=== PATIENT | female | born 2000 | race Caucasian/White ===

== ENCOUNTER 2024-10-19 19:24 | Emergency (ER) | payer OTHER, SELFPAY ==
[2024-10-19 19:26] VITALS: BP 130/91
--- NOTE | 2024-10-19 20:15 | ED.GENMED ---
History of Present Illness
General
Chief Complaint: Abdominal Symptoms
Source: patient
Exam Limitations: none
Time Seen by Provider: 10/19/24 19:57
History of Present Illness
History of Present Illness:
24-year-old female otherwise healthy presents complaining of lower abdominal and back pain that radiates down the legs. No bowel or bladder dysfunction. The pain in her abdomen is severe almost feels like menstrual cramps however she is on the
Depo shot and does not receive her menstrual cycle. She denies urinary retention or incontinence. She denies fevers. She believes she has been eating and drinking well. She is very active. No prior abdominal surgical history. No known injury
otherwise
Phy Exam
Physical Exam
Physical Exam:
General: Well-appearing female no acute respiratory distress
HEENT normocephalic atraumatic
Heart: Regular rate and rhythm lungs: Clear no wheeze
Abdomen soft tender to lower abdomen mild guarding no rebound tenderness
Extremities: No cyanosis
Course
Orders/Labs/Results
Orders:
Orders
10/19/24 20:10
0.9% Sodium Chloride 1000 ml [Nss] 1,000 ml IV BOLUS
Ketorolac [Toradol] 15 mg IV NOW STA
Test Result ONCE
US Pelvis W Transvag Combined Urgent
Comment:
Reason For Exam: pelvic pain
10/19/24 20:51
CPK [Creatine Phosphokinase] Urgent
Complete Blood Count/With Diff Urgent
Comprehensive Metabolic Panel Urgent
HCG, Serum Qualitative Screen Urgent
10/19/24 23:11
CT Abd/pelvis W Iv Cont Urgent
Comment:
Reason For Exam: lower abdominal pain
10/20/24 00:35
Urinalysis Reflex To Culture Urgent
Date Specimen was Collected: 10/20/24
Time Specimen was Collected: 00:40
Abnormal Lab Results
10/19/24
20:51
RBC 4.02 L 10^6/uL
(4.20-5.40)
Hct 35.3 L %
(37.0-47.0)
RDW 11.3 L %
(11.5-14.5)
Absolute Lymphs (auto) 1.0 L 10^3/uL
(1.2-3.4)
Lymphocytes % 17.6 L %
(20.5-51.1)
10/19/24 20:51
10/19/24 20:51
Vital Signs
Initial and Last Documented VS:
Initial Vital Signs
Temp Pulse Resp BP Pulse Ox
98.3 F 95 16 130/91 100
10/19/24 19:26 10/19/24 19:26 10/19/24 19:26 10/19/24 19:26 10/19/24 19:26
Last Documented Vital Signs
Temp Pulse Resp BP Pulse Ox
99.0 F 82 20 101/71 99
10/19/24 22:53 10/20/24 00:30 10/20/24 00:30 10/20/24 00:30 10/20/24 00:30
MDM/Problems Addressed
Differential Diagnosis Includes:
Patient with lower abdominal and back pain. Consider ovarian cyst versus torsion versus UTI versus pyelonephritis versus radiculopathy
She had a syncopal episode today that she describes as related to the pain. Question possible vasovagal episode. Will check EKG and placed on electronic device monitor
Fluids and Toradol ordered. Ultrasound pelvis ordered
*Pulse Oximetry
SaO2: 100
Oxygen Mode of Delivery: Room air
Patient hypoxic: no
*Critical Care Note
Total Time (30-74mins, 75-104mins- exclusive of procedures): Not Applicable
Update Note
Update Note:
Ultrasound negative for acute finding. CT was then ordered which was also negative for acute finding. Patient notes some relief after Toradol. Etiology of patient's abdominal pain somewhat unclear but with negative workup we will trial discharge
home with Motrin and Tylenol and return precautions were given
ED Attending Note
-
Portions of this chart may have been created with voice recognition software.� Occasional wrong word or��sound alike� substitutions may have occurred due to the inherent limitations of voice recognition software.
Discharge Plan
Departure
Patient Disposition: Home (Routine Discharge)
Date of Disposition: 10/20/24
Time of Disposition: 00:51
Patient with high blood pressure during this ER visit?: No
Discharge Problem:
Abdominal pain
Instructions: Abdominal Pain
Prescriptions:
No Action
Depo-Provera
1 unit IM Q90D
Referrals:
Tamera Gamez CRNP [Family Provider, General]
Stand Alone Forms: Return to Work
Activity Restrictions/Additional Instructions:
Use Tylenol or ibuprofen for pain. Return here if worse otherwise follow-up with your doctor
Interventions
Interventions:
*Risk Screen - Suicide Last Done: 10/19/24 19:26
*General Assessment Last Done: 10/19/24 19:26
*Neglect/Abuse Screening Last Done: 10/19/24 19:26
*ED- Fall Risk Assessment Last Done: 10/19/24 21:44
*ED COVID-19 Vaccine History Last Done: 10/19/24 21:44
SC-Fqihno-Fccdbsrfpf Assessment Last Done: 10/19/24 22:53
Discharge Date and Time
Print Language: ARGENTINE
[2024-10-19 21:09] LABS: Hematocrit 35.3 % (37.0-47.0); Hemoglobin 12.4 g/dL (12.0-16.0); Mean Corp Hgb Conc. 35.1 g/dL (33.0-37.0); Mean Corpuscular Volume 87.8 fL (81.0-99.0); Nucleated Red Blood Cells % 0 %; Platelet Count 192 10^3/uL (130-400); Red Cell Dist. Width 11.3 % (11.5-14.5)
[2024-10-19 21:20] LABS: HCG, Serum Qualitative Screen Negative
[2024-10-19 21:30] LABS: ALT (SGPT) 10 U/L (0-35); AST (SGOT) 18 U/L (14-36); Albumin 4.9 g/dl (3.5-5.0); Alkaline Phosphatase 58 U/L (38-126); Blood Urea Nitrogen 8 mg/dl (7-17); Calcium 10.1 mg/dl (8.4-10.2); Carbon Dioxide 24 mmol/L (22-30); Chloride 105 mmol/L (98-107); Glucose 95 mg/dl (70-99); Potassium 4.3 mmol/L (3.5-5.1); Sodium 140 mmol/L (135-145); Total Protein 7.8 g/dl (6.3-8.2); eGFR > 60.00
[2024-10-19] MEDS: TORADOL 15 MG IV (21:30)
[2024-10-19] MEDS: NSS 1000 IV (21:31)
[2024-10-19 21:34] VITALS: BMI 25.5
[2024-10-19 21:39] VITALS: BP 122/83
[2024-10-19 22:00] VITALS: BP 116/78
[2024-10-19 22:53] VITALS: BP 121/77
[2024-10-20 00:30] VITALS: BP 101/71
[2024-10-20 01:00] LABS: Urine Character Clear (Clear)
[2024-10-20 01:23] LABS: Urine Red Blood Cell 0-2 /HPF (0-2); Urine White Cell None Seen /HPF (0-5)
== END 2024-10-20 01:11 | disposition home or self-care (01) ==
LOC: EMR 19:24
PROVIDERS: Physician Assistant; EMERGENCY PHYSICIAN Student in an Organized Health Care Education/Training Program; FAMILY PHYSICIAN Nurse Practitioner Adult Health
DX: R55 Syncope and collapse (principal); R10.30 Lower abdominal pain, unspecified; M54.9 Dorsalgia, unspecified; R10.2 Pelvic and perineal pain
CPT/HCPCS: 99285; 96361; 96374; 74177; 76830; 76856; 80053; 81003; 81015; 82550; 84703; 85025; Q9967

== ENCOUNTER 2024-10-22 11:29 | Inpatient (IN) | payer OTHER, SELFPAY ==
[2024-10-22] VITALS (9 sets, daily range): BP systolic 100–130; BP diastolic 55–84; BMI 26.5; BMI 25.6
--- NOTE | 2024-10-22 08:06 | ED.GENMED ---
History of Present Illness
General
Chief Complaint: Headache
Source: patient, records and family
Exam Limitations: none
Time Seen by Provider: 10/22/24 07:53
Nursing documentation reviewed up to this point in time: agreed with
History of Present Illness
History of Present Illness:
24-year-old female with no reported chronic medical issues presents to the emergency room accompanied by her parents for evaluation of headache and lightheadedness. The patient was notably seen in this emergency room 3 days ago for abdominal
britany says that she started with lower abdominal cramping radiating to her back, was seen in the emergency room and had pelvic ultrasound as well as abdominal CT which were both negative for any acute abnormalities. She was discharged home and
said her symptoms were gone the next day and she had some spotting the next day and so she thinks her symptoms may have been from breakthrough menstrual symptoms (she is on Depo and has irregular periods). She says that yesterday evening she
started with headache and symptoms have been constant and significant since then. She reports a diffuse pressure sensation. No clear triggering relieving factors noted. She says that last night she was having some nausea and vomiting. She denies
any neck pain or stiffness. She denies fever or chills. She denies any eye pain, change in her vision or speech, focal weakness or numbness. She denies similar symptoms in the past. She does make note that overnight while she was vomiting she
had an episode of lightheadedness but did not pass out; she did have syncopal episode associated with her abdominal discomfort earlier this week felt likely to be vasovagal. She says that when she passed out she had a minor right frontal head
strike.
Review of Systems
Review of Systems
All Other Systems: ROS reviewed and negative except as documented in HPI and ROS
Constitutional: Reports fatigue; Denies fever
EENT: Denies sore throat or runny nose
Respiratory: Denies cough or trouble breathing
Cardiac: Denies chest pain, diaphoresis or palpitations
ABD/GI: Reports nausea and vomiting; Denies abdominal pain, diarrhea or constipated
: Denies flank pain
Musculoskeletal: Denies neck pain or back pain
Neurological: Reports dizzy (Lightheaded) and headache; Denies weakness or numbness
Phy Exam
Physical Exam
Physical Exam:
General: Resting in bed with her eyes closed but awakes easily, alert and answers questions appropriately; not toxic appearing
Head: Normocephalic, atraumatic
Eyes: Conjunctiva normal, EOMI, pupils equal round reactive to light bilaterally
Throat: Airway intact, handling secretions
Neck: Trachea midline, supple without meningismus, no cervical spine tenderness
Lungs: Clear to auscultation bilaterally, no wheezing, rales, rhonchi
Heart: Regular rate and rhythm, no murmurs, gallops, or rubs
Abd: Soft, non distended, nontender to deep palpation
Neuro: Cranial nerves intact, speech fluid without dysarthria or aphasia, motor and sensory intact in all extremities
Skin: no rash noted
Extremities: No edema in extremities, equal pulses in all extremities
Scores
Heart Failure Risk
Heart Failure Risk Score: Not Applicable
Heart Score for Chest Pain Patients
STEMI patient?: Not applicable
Withdrawal Assessment of Alcohol
Withdrawal Assessment Completed?: Not applicable
Course
Orders/Labs/Results
Orders:
Orders
10/22/24 07:44
EKG [Electrocardiogram (*1)] Urgent
Reason for Study: Fatigue / Weakness
EKG- Treatment ONCE
10/22/24 07:54
Test Result ONCE
10/22/24 07:55
0.9% Sodium Chloride 1000 ml [Nss] 1,000 ml IV BOLUS
10/22/24 08:05
CT Head & Neck Angio W/wo IV Urgent
Comment:
Reason For Exam: severe headache, syncope
10/22/24 08:15
COVID-19 Antigen Urgent
Source: Nasal Swab
Complete Blood Count/With Diff Urgent
Comprehensive Metabolic Panel Urgent
HCG, Serum Qualitative Screen Urgent
Influenza A+B Rapid Molecular Urgent
ASMITA Source: Nasal Swab
Specimen Description:
10/22/24 08:43
Diphenhydramine [Benadryl] 25 mg IV NOW STA
Ketorolac [Toradol] 15 mg IV NOW STA
Metoclopramide [Reglan] 5 mg IV NOW STA
Abnormal Lab Results
10/22/24
08:15
Hct 35.8 L %
(37.0-47.0)
RDW 11.4 L %
(11.5-14.5)
Absolute Lymphs (auto) 0.6 L 10^3/uL
(1.2-3.4)
Neutrophils % 85.3 H %
(42.2-75.2)
Lymphocytes % 7.7 L %
(20.5-51.1)
Chloride 109 H mmol/L
(98-107)
Glucose 112 H mg/dl
(70-99)
10/22/24 08:15
10/22/24 08:15
Vital Signs
Initial and Last Documented VS:
Initial Vital Signs
Temp Pulse Resp BP Pulse Ox
36.6 C 76 16 130/84 98
10/22/24 07:49 10/22/24 07:49 10/22/24 07:49 10/22/24 07:49 10/22/24 07:49
Last Documented Vital Signs
Temp Pulse Resp BP Pulse Ox
36.6 C 68 17 112/65 100
10/22/24 07:49 10/22/24 09:30 10/22/24 09:30 10/22/24 09:00 10/22/24 09:30
MDM/Problems Addressed
Differential Diagnosis Includes:
Tension headache, migraine headache, brain mass, brain bleed, aneurysm, concussion, electrolyte derangement/dehydration
MDM/Problems Addressed:
24-year-old female presents to the ER for evaluation of headache since yesterday associate with nausea and vomiting last night; recently had 24-hour episode of abdominal discomfort that has since resolved and was seen in the ER. She has had some
associated lightheadedness with her headache but no syncope. She did have syncope earlier this week associated with her abdominal pain and had minor head strike. Vital signs are normal here. Physical exam as above. Plan to check labs including a
CBC and a CMP, hCG. Swab for COVID and flu. Will check CTA head and neck. Provide fluids, Reglan, Benadryl. Will reassess after the above.
Labs reviewed: CBC and CMP unremarkable, hCG negative. COVID and flu negative. CTA shows diminutive intracranial vertebral arteries, basilar artery which is markedly diminutive�although less likely focal dissection/occlusion not excluded. Suspect
that this is unlikely of acute clinical significance however I did discuss with neurology for consultation. Recommended starting aspirin 81 mg, admission for further workup. Discussed with hospitalist for admission.
*Radiology
Radiology exam reviewed: radiology read reviewed
*Pulse Oximetry
SaO2: 100
Oxygen Mode of Delivery: Room air
Patient hypoxic: no (100%)
*EKG
Interpreted by ED Provider?: Yes
Heart Rate: 70
Rate: normal
Rhythm: sinus
[place]: normal axis
Interval: normal interval
QRS Pattern: normal QRS
Ischemia: other (Nonspecific T wave abnormality)
*Critical Care Note
Total Time (30-74mins, 75-104mins- exclusive of procedures): Not Applicable
Data Reviewed
Review of Other/Old Records Reveals: Labs, Records and Radiology Studies
Source: patient, records and family
Patient Management
Discussion with other providers: Hospitalist (Discussed with hospitalist) and Associate Professor Plant Pathology (Discussed with neurologist)
Escalation/DeEscalation of care consider admission/obs:
Admission indicated
ED Attending Note
-
Portions of this chart may have been created with voice recognition software.� Occasional wrong word or��sound alike� substitutions may have occurred due to the inherent limitations of voice recognition software.
Discharge Plan
Departure
Patient Disposition: Admit
Date of Disposition: 10/22/24
Time of Disposition: 10:04
Admit to doctor: Chely
Presentation/result/management discussed w/ accepting MD/DO: Hospitalist
Discharge Problem:
Headache, Syncope
Prescriptions:
No Action
Depo-Provera
1 unit IM Q90D
Referrals:
Tamera Gamez CRNP [Family Provider, General]
Interventions
Interventions:
*Risk Screen - Suicide Last Done: 10/22/24 07:49
*General Assessment Last Done: 10/22/24 08:03
*Neglect/Abuse Screening Last Done: 10/22/24 07:49
*ED- Fall Risk Assessment Last Done: 10/22/24 08:02
*ED COVID-19 Vaccine History Last Done: 10/22/24 08:02
ED- Neurological Assessment Last Done: 10/22/24 08:19
Discharge Date and Time
Print Language: PORTUGUESE
[2024-10-22] MEDS: NSS 1000 IV (08:17)
[2024-10-22 08:25] LABS: Hematocrit 35.8 % (37.0-47.0); Hemoglobin 12.9 g/dL (12.0-16.0); Mean Corp Hgb Conc. 36.0 g/dL (33.0-37.0); Mean Corpuscular Volume 85.2 fL (81.0-99.0); Nucleated Red Blood Cells % 0 %; Platelet Count 163 10^3/uL (130-400); Red Cell Dist. Width 11.4 % (11.5-14.5)
[2024-10-22 08:35] LABS: HCG, Serum Qualitative Screen Negative
[2024-10-22 08:39] LABS: COVID-19 Antigen Negative (Negative)
[2024-10-22 08:42] LABS: ALT (SGPT) 11 U/L (0-35); AST (SGOT) 18 U/L (14-36); Albumin 4.6 g/dl (3.5-5.0); Alkaline Phosphatase 67 U/L (38-126); Blood Urea Nitrogen 7 mg/dl (7-17); Calcium 8.7 mg/dl (8.4-10.2); Carbon Dioxide 22 mmol/L (22-30); Chloride 109 mmol/L (98-107); Estimated Creatinine Clearance > 125 ml/min; Glucose 112 mg/dl (70-99); Potassium 3.8 mmol/L (3.5-5.1); Sodium 141 mmol/L (135-145); Total Protein 7.3 g/dl (6.3-8.2); eGFR > 60.00
[2024-10-22] MEDS: BENADRYL 25 MG IV (08:54)
[2024-10-22] MEDS: TORADOL 15 MG IV ×3 (08:54→19:47)
[2024-10-22] MEDS: REGLAN 5 MG IV (08:55)
[2024-10-22] MEDS: LOW STRENGTH ASPIRIN 81 MG PO (10:10)
--- NOTE | 2024-10-22 10:46 | HPS.HSE ---
Family Physician
-
Family Physician: Tamera Gamez
Chief Complaint
-
Headache
History of Present Illness
24-year-old woman (no reported chronic medical issues) presents with headache and lightheadedness. She was here in the ER 3 days ago for abdominal pain�she says that she started with lower abdominal cramping radiating to her back. Pelvic
ultrasound as well as abdominal CT which were both negative. She thinks her symptoms may have been from breakthrough menstrual symptoms (she is on Depo and has irregular periods). Yesterday evening she started with headache and symptoms have been
constant and significant since then: a diffuse pressure sensation, no clear triggering relieving factors noted. Last night she was having nausea and vomiting. She denies any neck pain or stiffness, fever or chills, eye pain, change in her vision
or speech, focal weakness or numbness. No similar symptoms in the past. While she was vomiting she had an episode of lightheadedness but did not pass out; but she did have syncopal episode associated with her abdominal discomfort earlier this week
felt likely to be vasovagal. For this one she says that when she passed out she had a minor right frontal head strike. CT of head in ED was abnormal:
Diminutive intracranial vertebral arteries.
The right vertebral artery likely terminates as the right anterior inferior cerebellar artery, normal variant.
The left vertebral artery forms the basilar artery which is markedly diminutive.
Focal dissection/occlusion is less likely although not excluded.
Medical History
Past Medical History
Past Medical History: Reports Other
Additional Past Medical History:
Autoimmune gynecological condition
Past Surgical History: Reports None
Social History
Tobacco: Non-smoker
Alcohol: Occasional
Drug: None
Personal: Single
Employment: Employed
Family History
Family History: Not pertinent
Allergies / Home Medications
Allergies reflects when Allergies were last updated in [employer] [employer].
Home Medications with original date entered in [employer]
Allergy/Medication List:
Allergies
Allergy/AdvReac Type Severity Reaction Status Date / Time
No Known Allergies Allergy Verified 10/22/24 07:47
Home Medications
Depo-Provera 1 unit IM Q90D 10/19/24
Review of Systems
-
History Source: Patient
A 12 point ROS was completed and negative except as noted: Yes
Constitutional: Reports Chills
Abdomen/GI: Reports Nausea
Neurological: Reports Headache
Physical Exam
Vital Signs
Vital Signs
Temp Pulse Resp BP Pulse Ox
98 F 85 22 119/71 100
10/22/24 07:49 10/22/24 10:08 10/22/24 10:08 10/22/24 10:08 10/22/24 10:08
Physical Exam
General: Well Developed, Well Nourished, No Apparent Distress, Comfortable and Conversant
HEENT: NormoCephalic, Moist mucous membranes, Atraumatic, Nose Appears Normal and Ears Appear Normal
Respiratory: Clear
Cardiac: S1/S2 and Regular Rhythm
GI: Soft, Non Tender and Non Distended
Musculoskeletal: No Clubbing, No Cyanosis and No Edema
Skin: Warm and Dry
Neuro: Awake, Alert and Oriented
Psych: Calm
Laboratory Results
-
10/22/24 08:15
10/22/24 08:15
Laboratory Results
Total Bilirubin 0.5 mg/dl (0.2-1.3) 10/22/24 08:15
AST 18 U/L (14-36) 10/22/24 08:15
ALT 11 U/L (0-35) 10/22/24 08:15
Alkaline Phosphatase 67 U/L (38-126) 10/22/24 08:15
Data Reviewed
-
Lab Data: Labs Reviewed by me
Impression/Plan
-
IMPRESSION:
24 woman with headache and an abnormal head CT:
Diminutive intracranial vertebral arteries.
The right vertebral artery likely terminates as the right anterior inferior cerebellar artery, normal variant.
The left vertebral artery forms the basilar artery which is markedly diminutive.
Focal dissection/occlusion is less likely although not excluded.
PLAN:
1. Headache with abnormal head CT
Neuro consult
MRI (protocol per neuro instructions)
In meantime, symptom management
Full code
VCD for DVTp
--- NOTE | 2024-10-22 11:56 | CM ---
CM reviewed chart and met with grandparents at bedside in ED. Pt was sleeping. Lives with grandparents, 1 story home, [address].
Independent in ADLs, personal care and ambulation at baseline.
Grandmother confirms prescription coverage.
PCP: Tamera Gamez
Pharmacy: [facility]
CM will continue to follow for any discharge planning needs.
--- NOTE | 2024-10-22 12:38 | CON.NEURO ---
Consultation
Order
Date of Consultation: 10/22/24
Requesting Provider: Tomeka Cisneros M.D.
Reason for Consult: Headache
Neurology Consultation Note.
HPI: This is a 24-year-old woman who presented to [facility] on 10/22/2024 with headache, dizziness and emesis.
According to the patient she developed gradual in onset bifrontal nonpositional severe headache with associated photophobia, phonophobia, blurred vision and nausea on Wednesday evening around 5 PM. She describes the pain as sharp and stabbing in the
frontal and occipital regions, with a dull, pulsating pressure. States that she developed recurrent emesis around 4 AM today prompting her to seek medical care. She also reports developing imbalance and some issues with concentration.
Ms. Blanco states that she syncopized with resultant fall and head trauma (significant right forehead edema is present on provided picture) on . She was taken to urgent care and then to the emergency department.
She has attempted to manage her symptoms at home with ibuprofen, Advil, Tylenol, water, sherri he, but these interventions provided little relief. She denies any history of headaches. She also mentions experiencing occasional ear pain.
The patient has been on Depo-Provera, with her last injection on August 10. No reports of fever, rash
ER VS: 130/84, 76, afebrile
EKG: NSR, QTcB Int : 393 ms.
PDMP:none
Labs: Glucose�112, normal sodium, calcium, GFR, WBCs.
CTA head/neck- Diminutive intracranial vertebral arteries. The right vertebral artery likely terminates as the right anterior inferior cerebellar artery, normal variant. The left vertebral artery forms the basilar artery which is markedly
diminutive. Focal dissection/occlusion is less likely although not excluded.
PMH: none
PSH: Bilateral myringotomy, ankle surgery
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
FH: Noncontributory
All:NKDA
ROS: General: Positive for fatigue, muscle aches.
HEENT: Positive for headache, blurred vision, double vision, light sensitivity. Negative for nasal congestion.
Gastrointestinal: Positive for nausea, vomiting, indigestion.
Genitourinary: Positive for intermittent pelvic pain.
Musculoskeletal: Positive for back pain
Neurological: Positive for dizziness, difficulty concentrating, gait disturbance.
General: Well developed. In no acute distress.
Cardio: Regular rate and rhythm without murmur. Extremities are without cyanosis or edema.
Neuro:
Mental Status: Alert, oriented to person, place, and date. Normal attention and recall. Good fund of knowledge. Follows complex requests across the midline. Comprehension, naming, and repetition intact. Immediate and delayed recall 3/3.
Cranial Nerves: Pupils are equally round and reactive to light. EOMs full. Visual singh full to confrontation. Mild R ptosis. No nystagmus. V1-V3 intact to light touch and pinprick bilaterally, symmetric. Face symmetric. Normal hearing AU.
The palate elevated well. SCMs and traps 5/5. Tongue midline. No dysarthria.
Motor: Normal bulk and tone. No pronator or arm drift. Strength 5/5 throughout. No clonus.
Reflexes: 2+ throughout the upper extremities and knees. 2/2 in AJs. Plantar responses flexor bilaterally.
Sensory: Normal vibration and JPS.
Coordination: No dysmetria or tremor.
Gait: deferred
Assessment and Plan:
I. Acute post-traumatic headache.�Typically resolves within 2�4 weeks in the majority of patients. Predictors of poor prognosis include higher initial symptom burden (e.g., severe headache, multiple symptoms), history of migraine, and female sex
are associated with increased risk of persistent symptoms
II. Acute head concussion
III. Questionable basilar artery stenosis versus dissection.
-Continue Telemetry monitoring
-IV Toradol 30 mg, Reglan 10 mg, Benadryl 25 mg Q8h PRN for moderate to severe headache.
-Please check magnesium, ESR, CRP, SARS-CoV-2
-MRA head with fat suppression protocol
-DVT prophylaxis.
I personally reviewed all radiology and labs along with past medical records pertinent to current medical problems. Total time spent in patient care is 62 minutes.
Thank you for allowing us to participate in the care of this patient. We will continue to follow. Please do not hesitate to contact us with any questions or concerns.
Subjective/Objective
Subjective Data
Date of Service: October 22, 2024
Objective Data
Vital Signs
Temp Pulse Resp BP Pulse Ox
36.6 C 70 18 129/74 100
10/22/24 07:49 10/22/24 11:00 10/22/24 11:00 10/22/24 11:00 10/22/24 11:00
Lab Results
10/22/24 08:15
10/22/24 08:15
Sodium 141 mmol/L (135-145) 10/22/24 08:15
Potassium 3.8 mmol/L (3.5-5.1) 10/22/24 08:15
BUN 7 mg/dl (7-17) 10/22/24 08:15
Glucose 112 mg/dl (70-99) H 10/22/24 08:15
Calcium 8.7 mg/dl (8.4-10.2) 10/22/24 08:15
Patient Allergies
No Known Allergies Allergy (Verified 10/22/24 07:47)
Medications
-
Home Medications
�Medication �Instructions �Recorded
Depo-Provera 1 unit IM Q90D 10/19/24
Vital Signs and Labs
-
Vital Signs and Labs:
Vital Signs
Temp Pulse Resp BP Pulse Ox
36.6 C 70 18 129/74 100
10/22/24 07:49 10/22/24 11:00 10/22/24 11:00 10/22/24 11:00 10/22/24 11:00
Lab Results
10/22/24 08:15
10/22/24 08:15
Sodium 141 mmol/L (135-145) 10/22/24 08:15
Potassium 3.8 mmol/L (3.5-5.1) 10/22/24 08:15
BUN 7 mg/dl (7-17) 10/22/24 08:15
Glucose 112 mg/dl (70-99) H 10/22/24 08:15
Calcium 8.7 mg/dl (8.4-10.2) 10/22/24 08:15
Home Medications
-
Home Medications
Depo-Provera 1 unit IM Q90D 10/19/24
[2024-10-22] MEDS: TYLENOL 1000 MG PO ×2 (13:34→20:17)
[2024-10-22 14:12] LABS: Magnesium 1.5 mg/dl (1.6-2.3)
[2024-10-22 14:21] LABS: C-Reactive Protein 30.30 mg/L (0.0-10.00)
[2024-10-22 14:24] LABS: Troponin I < 0.012 ng/ml
--- NOTE | 2024-10-22 15:38 | PTCARENOTE ---
Pt. arrived to unit from ED at 1315 with 102.7 oral temp, Dr. oDnohue made aware and asked for Tylenol order. Tylenol given at 1334 and ice pack applied to back of pt. neck. Pt. temp at 1515 99.8. Pt. resting in bed with no c/o pain at this time.
Pt. Grandmother at bedside, call smith within reach.
--- NOTE | 2024-10-22 17:10 | PTCARENOTE ---
Dr. Donohue sent EKG via tiger text. No new orders at this time.
[2024-10-22 17:37] LABS: Troponin I < 0.012 ng/ml
[2024-10-22] MEDS: REGLAN 10 MG IV (19:58)
[2024-10-22 20:45] LABS: Troponin I < 0.012 ng/ml
[2024-10-23 03:14] VITALS: BP 98/68
[2024-10-23] MEDS: TYLENOL 1000 MG PO ×2 (03:17→19:59)
[2024-10-23 06:00] VITALS: BMI 25.1
--- NOTE | 2024-10-23 06:47 | PTCARENOTE ---
Attempted to get 0600 EKG. Machine showing leads disconnected. RN reattached leads and restarted EKG. Machine still showing leads disconnected. Attempted on a different machine- still showing leads disconnected. Will continue to monitor.
[2024-10-23 07:00] VITALS: BP 108/65
[2024-10-23] MEDS: BENADRYL 25 MG IV ×3 (08:21→20:29)
[2024-10-23] MEDS: REGLAN 10 MG IV ×3 (08:22→20:27)
[2024-10-23] MEDS: TORADOL 15 MG IV ×3 (08:22→20:28)
[2024-10-23 09:09] LABS: Hematocrit 33.3 % (37.0-47.0); Hemoglobin 11.7 g/dL (12.0-16.0); Mean Corp Hgb Conc. 35.1 g/dL (33.0-37.0); Mean Corpuscular Volume 87.4 fL (81.0-99.0); Platelet Count 150 10^3/uL (130-400); Red Cell Dist. Width 11.4 % (11.5-14.5)
[2024-10-23 09:38] LABS: Blood Urea Nitrogen 8 mg/dl (7-17); Calcium 9.0 mg/dl (8.4-10.2); Carbon Dioxide 25 mmol/L (22-30); Chloride 108 mmol/L (98-107); Estimated Creatinine Clearance 96 ml/min; Glucose 95 mg/dl (70-99); HDL Cholesterol 33 mg/dl; LDL Cholesterol, Calculated 75 mg/dl; Potassium 3.8 mmol/L (3.5-5.1); Sodium 141 mmol/L (135-145); Very Low Density Lipoprotein 14 mg/dl (0-30); eGFR > 60.00
[2024-10-23] MEDS: ASPIR LOW (ENTERIC COATED) 81 MG PO (09:51)
[2024-10-23 11:00] VITALS: BP 117/68
[2024-10-23 11:00] LABS: Glycohemoglobin (HgbA1c) 5.0 % (4.0-5.6)
[2024-10-23 12:57] LABS: Lyme Antibody Screen, EIA Negative (Negative)
--- NOTE | 2024-10-23 13:40 | W.PN.HOSP.TC ---
Today's Communication/Plan
-
Assessment / Plan
Assessment / Plan
General: No Apparent Distress, Comfortable and Conversant
HEENT: NormoCephalic, Moist mucous membranes, Atraumatic
Respiratory: Clear and Non Labored Respirations
Cardiac: S1/S2 and Regular Rhythm; No Rub or Gallop
GI: Soft, Non Tender, Non Distended and Normal Bowel Sounds
Musculoskeletal: No Edema, no deformity
Skin: Warm and dry
: NO Hand
Neuro: Awake, Alert, Nonfocal/grossly intact, no nuchal rigidity
Psych: Calm and Intact Judgment/Insight
Ms. Blanco is a 24-year-old female with a medical history of Lipschutz ulcers who presented with a headache and lightheadedness. She had been seen in the ED 3 days prior to this admission for abdominal/pelvic pain. CT imaging and
transvaginal ultrasound at that time are both unremarkable. She had a syncopal episode prior to that ED visit during which she struck her forehead on the ground. She believes that syncopal episode was due to her pain. At the time of this
presentation she had a fever of 102.7 �F. She was admitted for further evaluation and management.
Fever and headache:
- Etiology unclear at this point
- Still having intermittent fevers and headache relieved by medications
- Headache may be due to concussion from head strike during syncopal episode at home
- CT imaging of head and neck showed abnormal vasculature which is actually a normal variant
- MR angiography showed no evidence of dissection or occlusion
- Elevated CRP with normal ESR
- Lyme serologies pending
- Neurology following, felt no current indication for LP, will monitor
- Continue supportive care
DVT prophylaxis: SCDs
CODE STATUS: Full code
Total time spent on today's encounter was 53 minutes
Anticipated Discharge: 24 - 48 hours
Subjective/Interval History
-
Date of Service: October 23, 2024
Patient was seen and examined at bedside this morning. Ongoing frontal headache with no associated neck pain or rigidity. Continues to have intermittent low-grade fevers.
Objective Data
-
Labs:
Laboratory Results
10/23/24
08:49
WBC 6.7
Hgb 11.7 L
Hct 33.3 L
Plt Count 150
Sodium 141
Potassium 3.8
Chloride 108 H
Carbon Dioxide 25
BUN 8
Creatinine 0.7
Glucose 95
Calcium 9.0
Vital Signs:
Vital Signs
Temp Pulse Resp BP Pulse Ox
99.5 F 66 16 117/68 100
10/23/24 11:00 10/23/24 11:00 10/23/24 11:00 10/23/24 11:00 10/23/24 11:00
I&O
10/22/24 10/23/24 10/24/24
06:59 06:59 06:59
Intake Total 480 / 480
Balance 480 / 480
Review of Systems
-
History Source: Patient
All other systems: Reviewed and negative
Constitutional: Reports Fatigue
Neuro: Reports Headache
Physical Exam
-
General: No Apparent Distress
--- NOTE | 2024-10-23 14:49 | W.PN.NEURO.1 ---
Addendum entered and electronically signed by Mango Amos MD 10/23/24 15:58:
Studies reviewed.
I have personally examined the patient. I reviewed and agree with the DIRECTOR OF [employer]'s Note.
My addenda:
Awake, alert, interactive. No acute distress.
Speech intact.
Follows 2-step requests w/o difficulty. No tremor.
Extra-ocular movements grossly intact.
Facial movements full and symmetric. Hearing intact to normal conversational volume.
Normal UE movements bilaterally.
Neck: full ROM.
Chest: no dyspnea
Heart: no JVD
Ext: (-) Clubbing, (-) Cyanosis, (-) Edema
IMPRESSIONS/RECOMMENDATIONS:
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
No clear need at this time for lumbar puncture based on the patient's resolution of symptoms
Provide as needed therapies for headache recurrence
Reconsider additional therapies if patient has untenable symptoms or recurrent symptoms
D/W patient
All questions answered.
Will continue to follow as needed.
Original Note:
Today's Communication / Plan
-
MRA head with no dissection
-continue Toradol, Reglan and Benadryl as rescue regimen
-follow up outpatient with neurology
Neuro Assessment/Plan
Assessment
This is a 24-year-old female patient who presented to [facility] with headache dizziness and emesis. She had reported abdominal pain and syncopal event a few days prior. Symptoms now significantly improved
Fever likely related to viral illness versus lipschutz exacerbation
Headache/migraine likely secondary to head trauma versus viral illness
Plan
CTA with question of stenosis versus dissection, upon review of MRA head this looks like anatomic variant and not dissection
- Can continue Toradol Reglan and Benadryl if needed as migraine rescue
-Should fever returned can consider lumbar puncture
-should follow up with neurology as an outpatient
Subjective/Objective
Subjective Data
Date of Service: October 23, 2024
Pt seen at bedside today. She reports she is starting to feel much better. She did need to get additional headache medications today, but after about 45 minutes of taking medications she felt much better.
Objective Data
Vital Signs
Temp Pulse Resp BP Pulse Ox
99.5 F 66 16 117/68 100
10/23/24 11:00 10/23/24 11:00 10/23/24 11:00 10/23/24 11:00 10/23/24 11:00
Lab Results
10/23/24 08:49
10/23/24 08:49
Sodium 141 mmol/L (135-145) 10/23/24 08:49
Potassium 3.8 mmol/L (3.5-5.1) 10/23/24 08:49
BUN 8 mg/dl (7-17) 10/23/24 08:49
Glucose 95 mg/dl (70-99) 10/23/24 08:49
Calcium 9.0 mg/dl (8.4-10.2) 10/23/24 08:49
LDL Cholesterol, Calc 75 mg/dl 10/23/24 08:49
Patient Allergies
No Known Allergies Allergy (Verified 10/22/24 07:47)
Review of Systems
-
History Source: Patient
Constitutional: No Symptoms
EENT: No Symptoms Reported
Respiratory: No Symptoms
Cardiac: No Symptoms
Abdomen/GI: Abdominal Pain
Genitourinary: No Symptoms
Musculoskeletal: No Symptoms
Skin: No Symptoms
Neuro: Headache and See existing Neuro Note; Negative Weakness, Numbness, Ataxia, Tremors or Speech Problem
Endocrine: No Symptoms
Hematologic / Lymphatic: No Symptoms
Allergy / Immunology: No Symptoms
Physical Exam
-
General: Well Developed, Well Nourished and No Apparent Distress
Eyes: Round OU
HEENT: Normocephalic
Neck: Full Range of Motion
Respiratory: No Dyspnea
Skin: Unremarkable
Extremities: No Clubbing, No Cyanosis and No Edema
Psych: Unremarkable
Extended Neurological Exam
Mood & Affect: Mood Unremarkable
Attention Span & Concentration: Awake, Alert and Interactive
Memory: Unremarkable
Tremor: Hand Tremor Absent and Head Tremor Absent
Involuntary Movement: None
Speech: Quality Unremarkable, Quantity Unremarkable and Rate of Production Unremarkable
Cranial Nerve II: Left Eye: Visual [place] Grossly Intact
Cranial Nerve II: Right Eye: Visual [place] Grossly Intact
Cranial Nerves III, IV, : Extraocular Movement: Extraocular Movement Full in all Directions
Cranial Nerve VII: Facial Symmetry: Normal Facial Symmetry
Cranial Nerve VIII: Hearing: Unremarkable Hearing to Normal Conversational Volume
Muscle Strength, Overall: Full Throughout
Muscle Bulk & Tone: Bulk Unremarkable and Tone Unremarkable
Data Reviewed
-
CT-A: Report Reviewed
CT Head: Report Reviewed
MRI Head: Report Reviewed
[2024-10-23 15:00] VITALS: BP 117/72
--- NOTE | 2024-10-23 16:57 | CM ---
Pt sleeping .
Spoke with her grandmom who she lives with [place].
She said she [place],
[place] VN at [place].
PLAN Home no needs
[2024-10-23 19:45] VITALS: BP 127/80
[2024-10-23] MEDS: MAGNESIUM SULFATE 50 IV (22:16)
[2024-10-23 23:09] VITALS: BP 102/59
--- NOTE | 2024-10-23 23:23 | W.PN.UPDATE ---
Update Note
Progress Note Update
RN reports some vent bigeminy on tele monitor. Pt asymptomatic. noted to be 1.5 10/22 and not repleted a that time. Given arrythmia will give mag rider now.
[2024-10-24 03:21] VITALS: BP 103/61
[2024-10-24 05:49] VITALS: BMI 25.3
[2024-10-24 07:00] VITALS: BP 99/69
[2024-10-24 08:45] LABS: ALT (SGPT) < 10 U/L (0-35); AST (SGOT) 14 U/L (14-36); Albumin 4.0 g/dl (3.5-5.0); Alkaline Phosphatase 43 U/L (38-126); Blood Urea Nitrogen 10 mg/dl (7-17); Calcium 9.0 mg/dl (8.4-10.2); Carbon Dioxide 26 mmol/L (22-30); Chloride 106 mmol/L (98-107); Estimated Creatinine Clearance 96 ml/min; Glucose 132 mg/dl (70-99); Magnesium 2.3 mg/dl (1.6-2.3); Potassium 3.6 mmol/L (3.5-5.1); Sodium 141 mmol/L (135-145); Total Protein 6.6 g/dl (6.3-8.2); eGFR > 60.00
[2024-10-24] MEDS: STERILE WATER FOR INJECTION 10 ML IV (09:53)
[2024-10-24] MEDS: ASPIR LOW (ENTERIC COATED) 81 MG PO (09:53)
[2024-10-24] MEDS: ROCEPHIN 1000 MG IV (09:53)
[2024-10-24] MEDS: FLUSH (NSS) 2 FLUSH IV (09:53)
--- NOTE | 2024-10-24 10:44 | CM ---
Pt lives with grandma and grandpa
Grandparents will drive her home will drive pt [place] at [place],
She declined VN at [place].
PLAN Home no needs
[2024-10-24 11:00] VITALS: BP 116/68
[2024-10-24] MEDS: TYLENOL 1000 MG PO (11:13)
--- NOTE | 2024-10-24 13:09 | W.PN.HOSP.TC ---
Today's Communication/Plan
-
Assessment / Plan
Assessment / Plan
General: No Apparent Distress, Comfortable and Conversant
HEENT: NormoCephalic, Moist mucous membranes, Atraumatic
Respiratory: Clear and Non Labored Respirations
Cardiac: S1/S2 and Regular Rhythm; No Rub or Gallop
GI: Soft, Non Tender, Non Distended and Normal Bowel Sounds
Musculoskeletal: No Edema, no deformity
Skin: Warm and dry
: NO Hand
Neuro: Awake, Alert, Nonfocal/grossly intact, no nuchal rigidity
Psych: Calm and Intact Judgment/Insight
Ms. Blanco is a 24-year-old female with a medical history of Lipschutz ulcers who presented with a headache and lightheadedness. She had been seen in the ED 3 days prior to this admission for abdominal/pelvic pain. CT imaging and
transvaginal ultrasound at that time are both unremarkable. She had a syncopal episode prior to that ED visit during which she struck her forehead on the ground. She believes that syncopal episode was due to her pain. At the time of this
presentation she had a fever of 102.7 �F. She was admitted for further evaluation and management.
Fever and headache:
- Etiology unclear at this point, although suspect due to vaginal ulcers which she reports are becoming more painful and may be becoming infected
- Starting antibiotics after collecting cultures
- Still having intermittent fevers and headache relieved by medications
- Headache may be due to concussion from head strike during syncopal episode at home
- CT imaging of head and neck showed abnormal vasculature which is actually a normal variant
- MR angiography showed no evidence of dissection or occlusion
- Elevated CRP with normal ESR
- Lyme serologies negative
- Neurology following, felt no current indication for LP, will monitor
- Continue supportive care
Vaginal ulcers:
- Patient reports history of Lipschutz disease
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
- Rest of plan as above
DVT prophylaxis: SCDs
CODE STATUS: Full code
Total time spent on today's encounter was 54 minutes
Anticipated Discharge: 24 - 48 hours
Subjective/Interval History
-
Date of Service: October 24, 2024
Patient was seen and examined at bedside's morning. Her headache is improved but she had a high fever overnight of 102.9 �F and her vaginal ulcers are becoming more painful.
Objective Data
-
Labs:
Laboratory Results
10/24/24
07:30
Sodium 141
Potassium 3.6
Chloride 106
Carbon Dioxide 26
BUN 10
Creatinine 0.7
Glucose 132 H
Calcium 9.0
Total Bilirubin 0.5
AST 14
ALT < 10
Alkaline Phosphatase 43
Vital Signs:
Vital Signs
Temp Pulse Resp BP Pulse Ox
98.7 F 68 16 116/68 100
10/24/24 11:00 10/24/24 11:00 10/24/24 11:00 10/24/24 11:00 10/24/24 11:00
I&O
10/23/24 10/24/24 10/25/24
06:59 06:59 06:59
Intake Total 480 / 480
Balance 480 / 480
Review of Systems
-
History Source: Patient
All other systems: Reviewed and negative
Genitourinary: Reports Other (Vaginal ulcers with pain)
Physical Exam
-
General: No Apparent Distress
--- NOTE | 2024-10-24 14:20 | W.DCSUMMARY ---
Discharge Summary
Discharge Data
Date of Admission: 10/22/24
Date of Discharge: 10/24/24
Total time spent discharging patient (in min): 53
-
Pending Results: No
Hospital Course
Ms. Blanco is a 24-year-old female with a medical history of Lipschutz ulcers who presented with a headache and lightheadedness. She had been seen in the ED 3 days prior to this admission for abdominal/pelvic pain. CT imaging and
transvaginal ultrasound at that time are both unremarkable. She had a syncopal episode prior to that ED visit during which she struck her forehead on the ground. She believes that syncopal episode was due to her pelvic pain. At the time of this
presentation she had a fever of 102.7 �F. She was admitted for further evaluation and management.
CT imaging of her head neck showed abdominal vasculature which is actually a normal variant. MR angiography showed no evidence of dissection or occlusion. Labs did show an elevated CRP with a normal ESR. Her Lyme serology was negative. She was
evaluated by neurology who felt there was no current indication for further evaluation with lumbar puncture. Her headaches were controlled with cocktail of diphenhydramine, metoclopramide, and Toradol. She did continue to have intermittent fevers
and reported that her vaginal ulcers were becoming more painful and felt inflamed. She was started on antibiotics after cultures were obtained. Clinically she appeared well and preferred discharge to home rather than further inpatient workup.
This is appropriate considering she has outpatient follow-up with her primary stock lifter at [place] tomorrow 10/25 for further evaluation. She will be discharged with a course of oral antibiotics to complete a total 5-day course. She can take
NSAIDs, acetaminophen, and diphenhydramine as needed for ongoing control of her headaches. She will need to follow-up with her primary care provider for ongoing management of suspected concussion. At time of hospital discharge she was medically
stable.
General: No Apparent Distress, Comfortable and Conversant
HEENT: NormoCephalic, Moist mucous membranes, Atraumatic
Respiratory: Clear and Non Labored Respirations
Cardiac: S1/S2 and Regular Rhythm; No Rub or Gallop
GI: Soft, Non Tender, Non Distended and Normal Bowel Sounds
Musculoskeletal: No Edema, no deformity
Skin: Warm and dry
: NO Hand
Neuro: Awake, Alert, Nonfocal/grossly intact, no nuchal rigidity
Psych: Calm and Intact Judgment/Insight
Discharge Plan
-
Patient Disposition: Home (Routine Discharge)
Discharge Diagnosis/Procedures: Fevers, painful vaginal ulcers, headaches
Activity Restrictions/Additional Instructions:
Ms. Blanco is a 24-year-old female with a medical history of Lipschutz ulcers who presented with a headache and lightheadedness. She had been seen in the ED 3 days prior to this admission for abdominal/pelvic pain. CT imaging and
transvaginal ultrasound at that time are both unremarkable. She had a syncopal episode prior to that ED visit during which she struck her forehead on the ground. She believes that syncopal episode was due to her pelvic pain. At the time of this
presentation she had a fever of 102.7 �F. She was admitted for further evaluation and management.
CT imaging of her head neck showed abdominal vasculature which is actually a normal variant. MR angiography showed no evidence of dissection or occlusion. Labs did show an elevated CRP with a normal ESR (inflammatory markers). Her Lyme serology
was negative. She was evaluated by neurology who felt there was no current indication for further evaluation with lumbar puncture. Her headaches were controlled with cocktail of diphenhydramine, metoclopramide, and ketorolac. She did continue to
have intermittent fevers and reported that her vaginal ulcers were becoming more painful and felt inflamed. She was started on antibiotics after cultures were obtained. Clinically she appeared well and preferred discharge to home rather than
further inpatient workup. This is appropriate considering she has outpatient follow-up with her primary stock lifter at [place] tomorrow 10/25 for further evaluation. She will be discharged with a course of oral antibiotics to complete a total
5-day course. She can take NSAIDs, acetaminophen, and diphenhydramine as needed for ongoing control of her headaches. She will need to follow-up with her primary care provider for ongoing management of suspected concussion. At time of hospital
discharge she was medically stable.
Referrals:
Tamera Gamez CRNP [Family Provider, General]
Prescriptions:
New
amoxicillin-pot clavulanate 875-125 mg tablet
1 tab PO BID 4 Days Qty: 8 0RF
Continued
Depo-Provera
1 unit IM Q90D
Discharge Orders:
Discharge Patient (As Directed); Ordered 10/24/24
Ordered By: Kashmir Davison
Discharge Date and Time
Print Language: CZECH
[2024-10-24 15:00] VITALS: BP 122/75
== END 2024-10-24 16:44 | disposition home or self-care (01) | DRG 759 ==
LOC: 4 EAST ACU 11:29
PROVIDERS: ADMITTING PHYSICIAN Internal Medicine; ATTENDING PHYSICIAN Internal Medicine; EMERGENCY PHYSICIAN Emergency Medicine; FAMILY PHYSICIAN Nurse Practitioner Adult Health; OTHER PHYSICIAN Psychiatry & Neurology Neurology
DX: N76.5 Ulceration of vagina (principal); G44.319 Acute post-traumatic headache, not intractable; Z11.52 Encounter for screening for COVID-19; S09.90XA Unspecified injury of head, initial encounter; W19.XXXA Unspecified fall, initial encounter
CPT/HCPCS: 70496; 70498; 70546; 80048; 80053; 80061; 83036; 83735; 84484; 84703; 85025; 85027; 85652; 86140; 86618; 87040; 87502; 87811; 93005; 96361; 96374; 96375; 99285; A9585; Q9967